=== PATIENT | female | born 1950 | race Caucasian/White ===

== ENCOUNTER 2022-05-24 11:45 | Emergency (ER) | payer MEDICARE, OTHER ==
[~2022-05-24] VITALS: Ht 162.6 cm; Wt 72.6 kg
[~2022-05-24 11:45] MED LIST: Aspirin EC81 MG PO; LISHYD2025 PO; LOSA50 PO; Percocet 5-3251 EACH PO; Prednisone20 MG PO; TRAM50 PO; Zofran4 MG PO
[2022-05-24 12:26] LABS: BASOPHILS ABSOLUTE AUTO 0.06 K/mm3 (0.00-0.23); BASOPHILS PERCENT AUTO 1 % (0-2); EOSINOPHILS PERCENT AUTO 2 % (0-6); Hematocrit 47.7 % (33.0-51.0); Hemoglobin 14.9 g/dL (11.5-16.0); IMMATURE GRAN ABSOLUTE AUTO 0.03 K/mm3 (0.00-0.10); IMMATURE GRAN PERCENT AUTO 0 % (0-1); LYMPHOCYTES ABSOLUTE AUTO 3.02 K/mm3 (0.84-5.20); LYMPHOCYTES PERCENT AUTO 31 % (21-46); MONOCYTES ABSOLUTE AUTO 0.68 K/mm3 (0.16-1.47); MONOCYTES PERCENT AUTO 7 % (4-13); Mean Corpuscular HGB 25.7 pg (26.0-34.0); Mean Corpuscular HGB Conc 31.2 g/dL (31.5-36.5); Mean Corpuscular Volume 82 fL (80-100); Mean Platelet Volume 8.8 fL (9.1-12.4); NEUTROPHILS ABSOLUTE AUTO 5.72 K/mm3 (1.96-9.15); NEUTROPHILS PERCENT AUTO 59 % (41-73); Platelet Count 655 K/mm3 (150-400); RDW Coefficient Variation 15.9 % (11.7-14.2); RDW Standard Deviation 47.4 fL (35.1-46.3); White Blood Cell Count 9.71 K/mm3 (4.00-11.30)
[2022-05-24 12:54] LABS: Albumin/Globulin Ratio 1.1 (0.8-1.8); Bilirubin, Total 0.4 mg/dL (0.1-1.0); Bun/Creatinine Ratio 17.9 (12.0-20.0); Calcium, Blood 9.5 mg/dL (8.5-10.1); Creatinine, Blood 1.51 mg/dL (0.40-1.00); Globulin, Blood 3.8 g/dL (2.2-4.0); Potassium, Blood 3.4 mmol/L (3.5-5.5); Total Protein, Blood 7.8 g/dL (6.4-8.2)
[2022-05-24 15:23] LABS: Influenza A, PCR NEGATIVE (NEGATIVE); Influenza B, PCR NEGATIVE (NEGATIVE); Resp Syncytial Virus, PCR NEGATIVE (NEGATIVE); SARS-Cov-2 (COVID-19) PCR, MMC NEGATIVE (NEGATIVE)
[2022-05-24] MEDS ORDERED: MICROZIDE12.5 M1 PO (16:10)
[2022-05-24] MEDS ORDERED: METO50ER PO (16:10)
[2022-05-24] MEDS ORDERED: POTCHL20ER PO (16:11)
== END 2022-05-24 16:20 | disposition home or self-care (01) ==
LOC: ER 11:45
PROVIDERS: Emergency Medicine; Student in an Organized Health Care Education/Training Program
DX: I12.9 Hypertensive chronic kidney disease with stage 1 through stage 4 chronic kidney disease, or unspecified chronic kidney disease (principal); N18.9 Chronic kidney disease, unspecified; R07.89 Other chest pain; E87.6 Hypokalemia; R41.0 Disorientation, unspecified; R79.89 Other specified abnormal findings of blood chemistry; Z20.822 Contact with and (suspected) exposure to COVID-19; Z88.5 Allergy status to narcotic agent; Z79.899 Other long term (current) drug therapy
CPT/HCPCS: 0241U; 71045; 80053; 84484; 85025; 93005; 93010; A9270

== ENCOUNTER 2022-10-19 11:03 | Inpatient (IN) | payer MEDICARE ==
[~2022-10-19] VITALS: Ht 162.6 cm; Wt 69.2 kg
[~2022-10-19 11:03] MED LIST changes: +METO50ER PO; +MICROZIDE12.5 M1 PO; +POTCHL20ER PO
[2022-10-19 11:47] LABS: Hematocrit 47.6 % (33.0-51.0); Hemoglobin 15.6 g/dL (11.5-16.0); Mean Corpuscular HGB 28.1 pg (26.0-34.0); Mean Corpuscular HGB Conc 32.8 g/dL (31.5-36.5); Mean Corpuscular Volume 86 fL (80-100); Platelet Count 692 K/mm3 (150-400); RDW Standard Deviation 47.1 fL (35.1-46.3); Red Blood Cell Count 5.56 M/mm3 (3.80-5.20); White Blood Cell Count 19.25 K/mm3 (4.00-11.30)
[2022-10-19 12:13] LABS: Albumin, Blood 3.5 g/dL (3.4-5.0); Albumin/Globulin Ratio 0.8 (0.8-1.8); Bilirubin, Total 0.5 mg/dL (0.1-1.0); Bun/Creatinine Ratio 16.1 (12.0-20.0); Calcium, Blood 9.6 mg/dL (8.5-10.1); Creatinine, Blood 2.74 mg/dL (0.40-1.00); Globulin, Blood 4.2 g/dL (2.2-4.0); Potassium, Blood 3.8 mmol/L (3.5-5.5); Total Protein, Blood 7.7 g/dL (6.4-8.2)
[2022-10-19] MEDS ORDERED: LISI20 PO (12:20)
[2022-10-19] MEDS ORDERED: AMLODIPINE BESYL5 MG PO (12:20)
[2022-10-19 12:21] LABS: BAND PERCENT MAN 1 % (0-8); BASOPHILS PERCENT MAN 0 % (0-2); EOSINOPHILS PERCENT MAN 0 % (0-6); LYMPHOCYTES ABSOLUTE MAN 1.54 K/mm3 (0.84-5.20); LYMPHOCYTES PERCENT MAN 8 % (21-46); MONOCYTES ABSOLUTE MAN 0.77 K/mm3 (0.16-1.47); MONOCYTES PERCENT MAN 4 % (4-13); NEUTROPHILS ABSOLUTE MAN 16.94 K/mm3 (1.96-9.15); SEG NEUTROPHILS PERCENT MAN 87 % (41-73); TOTAL CELLS COUNTED 100
[2022-10-19 12:36] LABS: BASOPHILS ABSOLUTE AUTO 0.09 K/mm3 (0.00-0.23); BASOPHILS PERCENT AUTO 1 % (0-2); EOSINOPHILS ABSOLUTE AUTO 0.01 K/mm3 (0.00-0.68); EOSINOPHILS PERCENT AUTO 0 % (0-6); IMMATURE GRAN ABSOLUTE AUTO 0.15 K/mm3 (0.00-0.10); IMMATURE GRAN PERCENT AUTO 1 % (0-1); LYMPHOCYTES ABSOLUTE AUTO 1.83 K/mm3 (0.84-5.20); LYMPHOCYTES PERCENT AUTO 9 % (21-46); MONOCYTES ABSOLUTE AUTO 1.72 K/mm3 (0.16-1.47); MONOCYTES PERCENT AUTO 9 % (4-13); NEUTROPHILS ABSOLUTE AUTO 15.91 K/mm3 (1.96-9.15); NEUTROPHILS PERCENT AUTO 81 % (41-73)
[2022-10-19 16:46] LABS: Source, Urine Clean Catch
[2022-10-19 16:57] LABS: Bilirubin, Urine Neg (Neg); Blood, Urine 1+ (Neg); Glucose Qualitative, Urine Neg (Neg); Ketones, Urine 2+ (Neg); Leukocyte Esterase, Urine Neg (Neg); Nitrite, Urine Neg (Neg); Protein, Urine 2+ (Neg); Specific Gravity, Urine 1.015 (1.003-1.022); Urobilinogen, Urine NORM (Normal)
[2022-10-19 17:16] LABS: Appearance, Urine Hazy (Clear); Color, Urine Yellow (P-Yellow)
[2022-10-19 17:17] LABS: Amorphous Light (0-Heavy); Bacteria Few /hpf; Red Blood Cells, Urine 0-2 /hpf (0-2); Squamous Epithelial Cells Few /hpf (Few); White Blood Cells, Urine 0-2 /hpf (0-5)
[2022-10-19 17:21] LABS: Hyaline Casts 0-2 /lpf (0-2)
[2022-10-19 22:01] LABS: Anti-Xa UFH, PHA Monitoring <0.10 IU/mL; Prothrombin Time Results 11.5 Sec (9.7-11.5)
[2022-10-20 05:13] LABS: BASOPHILS ABSOLUTE AUTO 0.05 K/mm3 (0.00-0.23); BASOPHILS PERCENT AUTO 0 % (0-2); EOSINOPHILS ABSOLUTE AUTO 0.09 K/mm3 (0.00-0.68); EOSINOPHILS PERCENT AUTO 1 % (0-6); Hematocrit 41.4 % (33.0-51.0); Hemoglobin 13.3 g/dL (11.5-16.0); IMMATURE GRAN ABSOLUTE AUTO 0.13 K/mm3 (0.00-0.10); IMMATURE GRAN PERCENT AUTO 1 % (0-1); LYMPHOCYTES ABSOLUTE AUTO 1.42 K/mm3 (0.84-5.20); LYMPHOCYTES PERCENT AUTO 8 % (21-46); MONOCYTES ABSOLUTE AUTO 1.35 K/mm3 (0.16-1.47); MONOCYTES PERCENT AUTO 8 % (4-13); Mean Corpuscular HGB 27.8 pg (26.0-34.0); Mean Corpuscular HGB Conc 32.1 g/dL (31.5-36.5); Mean Corpuscular Volume 86 fL (80-100); Mean Platelet Volume 9.1 fL (9.1-12.4); NEUTROPHILS ABSOLUTE AUTO 14.01 K/mm3 (1.96-9.15); NEUTROPHILS PERCENT AUTO 82 % (41-73); Platelet Count 615 K/mm3 (150-400); RDW Coefficient Variation 15.2 % (11.7-14.2); RDW Standard Deviation 47.8 fL (35.1-46.3); Red Blood Cell Count 4.79 M/mm3 (3.80-5.20); White Blood Cell Count 17.05 K/mm3 (4.00-11.30)
--- NOTE | 2022-10-20 05:51 | NUR ---
SHIFT SUMMARY PT ARRIVED TO FLOOR AROUND 2100. ASSESSMENT COMPLETE, ADMISSION COMPLETE. SKIN CHECK DONE, SKIN INTACT. ON ARRIVAL, PT DENIES ANY ABDOMINAL PAIN. AROUND 0130 PT REPORTS 8/10 ABDOMINAL PAIN, ADMINSITERED PRN MORPHINE THAT WAS EFFECTIVE. DENIES ANY NAUSEA. PT REMAINS ON 2LO2 D/T PAIN MEDICATION ADMIN AND DESATING. UP TO BSC X1 SBA. PT RUNNING NSR ON TELE. HEPARIN GTT INITIATED. PT DENIES ANY OTHER S/S OF DISTRESS BESIDES PAIN. PT FROM HOME WITH , LIVING INDEPENDENT OF ADLS. PT ORINETED X4, ABLE TO MAKE NEEDS KNOWN, CALL LIGHT IN REACH.
[2022-10-20 06:18] LABS: Albumin, Blood 2.7 g/dL (3.4-5.0); Albumin/Globulin Ratio 0.8 (0.8-1.8); Bilirubin, Total 0.4 mg/dL (0.1-1.0); Bun/Creatinine Ratio 16.5 (12.0-20.0); Calcium, Blood 8.6 mg/dL (8.5-10.1); Creatinine, Blood 2.66 mg/dL (0.40-1.00); Globulin, Blood 3.5 g/dL (2.2-4.0); Total Protein, Blood 6.2 g/dL (6.4-8.2)
--- NOTE | 2022-10-20 16:22 | NUR ---
1620- CALL TO DR GREER, NOTIFIED OF ELEVATED BP. RN WILL ADMINISTER HYDRALAZINE AND WILL NOT START IVF PER MD INSTRUCTIONS. WILL F/U WITH BP. AT BEDSIDE AND REQUESTING TO SPEAK WITH DR GREER. SHE IS PLANNING TO COME AND SPEAK WITH FAMILY. RN ALSO REPORTED HEARING CRACKLES IN THE PT'S BASES. PT HAS HAD POOR PO INTAKE AND ONLY 200ML OUT THIS SHIFT. CONCENTRATED URINE
--- NOTE | 2022-10-20 17:42 | NUR ---
SUMMARY- PT A/O X4. WITHDRAWN AND FEELS OVERALL TIRED AND LOW ENERGY. STATES L FLANK PAIN INTERMITTANT, HEAVY PRESSURE. MEDICATED WITH MORPHINE THIS AM AND PT BECAME VERY SEDATED BUT AROUSED EASILY. CHANGED TO FENT. PT DENIED PAIN MOST OF THE AFTERNOON UNTIL AROUND 1645 MEDICATED WITH FENT, PT STATES PAIN INTERMITTANT BUT MANAGABLE. MEDICATED ONCE FOR NAUSEA, HAD EMESIS, BELEIVES IT'S BECAUSE SHE GOT TOO HOT IN HER ROOM. GIVEN ZOFRAN. PT HAS REFUESE SOLID FOOD. DRANK MILK FOR BREAKFAST REFUSED LUNCH AND DINNER. TAKING IN SMALL AMOUNTS OF WATER WITH QUING. PT USES CALL LIGHT. SBA BSC, URINE MED CONCENTRATED. DR GREER SPOKE WITH AND AND RELAYED PLAN. WILL F/U WITH LABS IN AM AND DR GREER PLANS TO SPEAK WITH DR PADGETT ABOUT POSSIBLE INTERVENTIONS IF NEEDED. ALSO POSSIBILITY OF BRINGING IN [facility] FOR CONSULT.
[2022-10-21 03:45] LABS: BASOPHILS ABSOLUTE AUTO 0.05 K/mm3 (0.00-0.23); BASOPHILS PERCENT AUTO 0 % (0-2); EOSINOPHILS ABSOLUTE AUTO 0.18 K/mm3 (0.00-0.68); EOSINOPHILS PERCENT AUTO 1 % (0-6); Hemoglobin 13.1 g/dL (11.5-16.0); IMMATURE GRAN ABSOLUTE AUTO 0.07 K/mm3 (0.00-0.10); IMMATURE GRAN PERCENT AUTO 1 % (0-1); LYMPHOCYTES ABSOLUTE AUTO 1.47 K/mm3 (0.84-5.20); LYMPHOCYTES PERCENT AUTO 10 % (21-46); MONOCYTES ABSOLUTE AUTO 1.34 K/mm3 (0.16-1.47); MONOCYTES PERCENT AUTO 9 % (4-13); Mean Corpuscular HGB 27.9 pg (26.0-34.0); Mean Corpuscular Volume 87 fL (80-100); Mean Platelet Volume 9.1 fL (9.1-12.4); NEUTROPHILS ABSOLUTE AUTO 12.25 K/mm3 (1.96-9.15); NEUTROPHILS PERCENT AUTO 80 % (41-73); Platelet Count 636 K/mm3 (150-400); RDW Coefficient Variation 15.2 % (11.7-14.2); RDW Standard Deviation 48.7 fL (35.1-46.3); White Blood Cell Count 15.36 K/mm3 (4.00-11.30)
[2022-10-21 04:03] LABS: Albumin, Blood 2.6 g/dL (3.4-5.0); Anion Gap 10 mmol/L (6-16); Blood Urea Nitrogen 49 mg/dL (8-24); Bun/Creatinine Ratio 16.8 (12.0-20.0); CO2, Blood 21 mmol/L (21-32); Calcium, Blood 8.7 mg/dL (8.5-10.1); Chloride, Blood 104 mmol/L (98-108); Creatinine, Blood 2.91 mg/dL (0.40-1.00); Glomerular Filtration Rate 17 (60-); Glucose, Blood 80 mg/dL (70-99); Phosphorus, Blood 4.1 mg/dL (2.5-4.9); Potassium, Blood 3.9 mmol/L (3.5-5.5); Sodium, Blood 135 mmol/L (136-145)
--- NOTE | 2022-10-21 04:56 | NUR ---
SHIFT SUMMARY SBP IN THE 130'S AT BEGINNING OF SHIFT, DISCUSSED WITH GSA COORDINATOR AND DAY SHIFT RN TO START THE NS@75ML/HR AND ADMINISTERED SCHEDULED 2100 METROPOLOL. 0330 VITALS SBP 159, PER GSA COORDINATOR KEEP FLUIDS GOING. PT HAD EPISODE OF CONFUSION, OOB NOT KNOWING WHERE SHE WAS, COMPLAINING OF BACK PAIN. ADMINISTERED PRN FENTANYL AND REORIENTED PT. PT FORGETFUL REST OF SHIFT, BUT REDIRECTABLE. BED ALARM ON. HEPARIN GTT CONTINUES. UP TO BSC WITH X1 PERSON ASSIST. NSR ON TELE. REMAINS ON ROOM AIR, LUNGS A LITTLE COARSE. CALL LIGHT IN REACH, FREQUENT ROUNDING TO ASSIST WITH PT NEEDS.
--- NOTE | 2022-10-21 16:16 | NUR ---
Spiritual care visit conducted. Patient is lying in bed and alert. She tells me about her relatively healthy life and the surprise of this hospitalization and the suprise of the pain that has been a result of her condition. She states that she will possibly be having surgery soon but she is uncertain of what exactly will be done. She does discuss her fear about having surgery. She shares about her Kady and his worry for her and about the support that he is to her. She explains about her Episcopal yon and Kady's L.D.S. belief system. I provide therapeutic listening, anxiety containment and prayer. Patient responds well and shows signs of reduced stress. I will continue to remain available to patient and family.
--- NOTE | 2022-10-21 17:39 | NUR ---
PT TRANSFERRED TO [facility] VIA BED FOR KIDNEY ANGIO SCHEDULED WITH DR PADGETT. PT HAS BEEN NPO SINCE 1130. HEPARIN GTT OFF AT 1730. NS OFF AT 1730. PT HAD PAIN THIS AM AND MEDICATED ONCE, PAIN CONTROLLED EXCEPT MILD INTERMITTANT L FLANK ABD PAIN AND DECLINED PAIN MEDS. AT BEDSIDE ALL DAY WITH PATIENT AND FOLLOWED PT TO ANGIO. PT WILL RECOVER IN PCU. ALL BELONGINGS SENT WITH PT.
--- NOTE | 2022-10-21 18:33 | NUR ---
CALLED REPORT TO DEAN Quinteros PT WILL BE GOING TO PCU 6 TO RECOVER POST RENAL ANGIO.
[2022-10-22 02:48] LABS: Magnesium, Blood 2.1 mg/dL (1.6-2.4)
[2022-10-22 02:50] LABS: BASOPHILS ABSOLUTE AUTO 0.06 K/mm3 (0.00-0.23); BASOPHILS PERCENT AUTO 0 % (0-2); EOSINOPHILS ABSOLUTE AUTO 0.22 K/mm3 (0.00-0.68); EOSINOPHILS PERCENT AUTO 2 % (0-6); Hematocrit 41.7 % (33.0-51.0); Hemoglobin 13.4 g/dL (11.5-16.0); IMMATURE GRAN ABSOLUTE AUTO 0.13 K/mm3 (0.00-0.10); IMMATURE GRAN PERCENT AUTO 1 % (0-1); LYMPHOCYTES ABSOLUTE AUTO 1.24 K/mm3 (0.84-5.20); LYMPHOCYTES PERCENT AUTO 9 % (21-46); MONOCYTES PERCENT AUTO 10 % (4-13); Mean Corpuscular HGB 27.5 pg (26.0-34.0); Mean Corpuscular HGB Conc 32.1 g/dL (31.5-36.5); Mean Corpuscular Volume 86 fL (80-100); Mean Platelet Volume 9.5 fL (9.1-12.4); NEUTROPHILS ABSOLUTE AUTO 11.35 K/mm3 (1.96-9.15); NEUTROPHILS PERCENT AUTO 78 % (41-73); Platelet Count 724 K/mm3 (150-400); RDW Coefficient Variation 15.2 % (11.7-14.2); RDW Standard Deviation 47.2 fL (35.1-46.3); Red Blood Cell Count 4.88 M/mm3 (3.80-5.20)
[2022-10-22 03:06] LABS: Albumin, Blood 2.4 g/dL (3.4-5.0); Albumin/Globulin Ratio 0.6 (0.8-1.8); Bilirubin, Direct 0.1 mg/dL (0.0-0.3); Bilirubin, Indirect 0.2 mg/dL (0.1-0.7); Bilirubin, Total 0.3 mg/dL (0.1-1.0); Bun/Creatinine Ratio 17.3 (12.0-20.0); Calcium, Blood 8.7 mg/dL (8.5-10.1); Creatinine, Blood 2.83 mg/dL (0.40-1.00); Globulin, Blood 3.8 g/dL (2.2-4.0); Phosphorus, Blood 3.6 mg/dL (2.5-4.9); Potassium, Blood 3.8 mmol/L (3.5-5.5); Total Protein, Blood 6.2 g/dL (6.4-8.2)
--- NOTE | 2022-10-22 05:39 | NUR ---
SHIFT SUMMARY PT ARRIVED TO THE UNIT POST RENAL ANGIO, SHE HAS A RIGHT GROIN ACCESS SITE, DRSG REMAINS C/D/I, NO S/S OF BLEEDING, PT MEDICATED FOR PAIN X1, A&O X4, DROWSY, HYPERTENSIVE, ON RA, RESP UNLABORED, SPO2 >95%. PT VOIDED 300 ML'S CLEAR YELLOW URINE VIA BEDPAN. TOLERATING PO FLUIDS, HEP GTT INFUSING PER EMAR @ 14 UNITS/KG/HR. PT RESTING QUIETLY AT THIS TIME, WCTM & REPORT TO ONCOMING RN
--- NOTE | 2022-10-22 13:13 | NUR ---
TRANSFER NOTE VSS, PT WAS ABLE TO ABMULATE TO WHEELCHAIR A 1 PERSON SBA, SHE DID APPEAR UNSTEADY ON HER FEET. SHE DENIED FEELINGS OF DIZZINESS. HEPARIN DRIP IS INFUSING PER EMAR ORDERS. REPORT GIVEN TO ÓSCAR NEGRO ON MEDICAL FLOOR. PT LEFT PCU APPROX. 1305 VIA WHEELCHAIR AND WAS ASSISTED BY JUAN OSBORN CNA AND THERON CERRATO CNA. HER WAS ALSO AT BEDSIDE.
--- NOTE | 2022-10-22 16:37 | NUR ---
MET WITH RN, PT TO BE DC TOMORROW TO HOME. PT RESTNG AT THIS TIME, NO CONCERNS. PALLIATIVE CARE WILL CONT TO BE AVAILABLE NEEDED.
--- NOTE | 2022-10-22 19:06 | NUR ---
PT RESTING IN BED NO S/S OF ACUTE DISTRESS, SAFETY MEASURES IN PLACE REPORT GIVEN TO ON COMING NURSE.
[2022-10-23 04:53] LABS: BASOPHILS ABSOLUTE AUTO 0.07 K/mm3 (0.00-0.23); BASOPHILS PERCENT AUTO 1 % (0-2); EOSINOPHILS ABSOLUTE AUTO 0.31 K/mm3 (0.00-0.68); EOSINOPHILS PERCENT AUTO 2 % (0-6); Hematocrit 38.9 % (33.0-51.0); Hemoglobin 12.8 g/dL (11.5-16.0); IMMATURE GRAN ABSOLUTE AUTO 0.14 K/mm3 (0.00-0.10); IMMATURE GRAN PERCENT AUTO 1 % (0-1); LYMPHOCYTES PERCENT AUTO 12 % (21-46); MONOCYTES ABSOLUTE AUTO 1.34 K/mm3 (0.16-1.47); MONOCYTES PERCENT AUTO 10 % (4-13); Mean Corpuscular HGB 27.9 pg (26.0-34.0); Mean Corpuscular HGB Conc 32.9 g/dL (31.5-36.5); Mean Corpuscular Volume 85 fL (80-100); Mean Platelet Volume 9.1 fL (9.1-12.4); NEUTROPHILS ABSOLUTE AUTO 9.41 K/mm3 (1.96-9.15); NEUTROPHILS PERCENT AUTO 73 % (41-73); Platelet Count 753 K/mm3 (150-400); RDW Coefficient Variation 15.2 % (11.7-14.2); RDW Standard Deviation 46.8 fL (35.1-46.3); Red Blood Cell Count 4.59 M/mm3 (3.80-5.20); White Blood Cell Count 12.87 K/mm3 (4.00-11.30)
[2022-10-23 05:19] LABS: Albumin, Blood 2.5 g/dL (3.4-5.0); Anion Gap 10 mmol/L (6-16); Blood Urea Nitrogen 47 mg/dL (8-24); Bun/Creatinine Ratio 17.3 (12.0-20.0); CO2, Blood 19 mmol/L (21-32); Calcium, Blood 9.3 mg/dL (8.5-10.1); Chloride, Blood 108 mmol/L (98-108); Creatinine, Blood 2.72 mg/dL (0.40-1.00); Glomerular Filtration Rate 18 (60-); Glucose, Blood 99 mg/dL (70-99); Magnesium, Blood 2.1 mg/dL (1.6-2.4); Phosphorus, Blood 2.8 mg/dL (2.5-4.9); Potassium, Blood 3.8 mmol/L (3.5-5.5); Sodium, Blood 137 mmol/L (136-145)
--- NOTE | 2022-10-23 05:20 | NUR ---
COPYRIGHT EXPERT SUMMARY NO ACUTE EVENTS. PT ABLE TO RESPOND APPROPRIATELY TO ALL ORIENATION QUESTIONS. HER RESPONSE IS SLOW AND HER AFFECT IS FLAT/ANXIOUS. THE PUNCTURE SITE IN GROIN WNL; NO BLEEDING/ SWELLING, BRUISING; DRESSING CDI. PT AMBULATED T/BSC 1PA W/FWW. URINE CLEAR YELLOW. 0336 VITALS/SPB 176; GAVE 10MG APRESOLINE; SPB DROPPED TO 158. PT ABLE TO MAKE NEEDS KNONW. CALL LIGHT ACCESSIBLE. BED LOCKED/LOW.
[2022-10-23] MEDS ORDERED: CLOP75 PO (10:15)
[2022-10-23] MEDS ORDERED: ATOR40TA PO (10:15)
[2022-10-23] MEDS ORDERED: SODBIC650 PO (10:16)
--- NOTE | 2022-10-23 11:15 | NUR ---
PT ALERT DC HOME WITH SPOUSE. PT AND FAMILY VERBALIZED UNDERSTANDING OF DC INSTRUCTIONS.
== END 2022-10-23 11:11 | disposition home or self-care (01) | DRG 674 ==
LOC: ER 11:03 → MEDS 20:41 → PCU 10-21 18:27 → MEDS 10-22 13:20
PROVIDERS: Family Medicine; Internal Medicine Nephrology; Pharmacist; Physician Assistant; ADMIT Internal Medicine
PROC: 047A3DZ Dilation of Left Renal Artery with Intraluminal Device, Percutaneous Approach (ICD-10-PCS; principal; 2022-10-21)
PROC: 04FY3Z0 Fragmentation of Lower Artery, Percutaneous Approach, Ultrasonic (ICD-10-PCS; 2022-10-21)
PROC: 3E05317 Introduction of Other Thrombolytic into Peripheral Artery, Percutaneous Approach (ICD-10-PCS; 2022-10-21)
DX: N28.0 Ischemia and infarction of kidney (principal); E87.1 Hypo-osmolality and hyponatremia; N17.9 Acute kidney failure, unspecified; N12 Tubulo-interstitial nephritis, not specified as acute or chronic; E87.20 Acidosis, unspecified; I12.9 Hypertensive chronic kidney disease with stage 1 through stage 4 chronic kidney disease, or unspecified chronic kidney disease; E88.09 Other disorders of plasma-protein metabolism, not elsewhere classified; D75.838 Other thrombocytosis; E78.5 Hyperlipidemia, unspecified; D72.828 Other elevated white blood cell count; N18.30 Chronic kidney disease, stage 3 unspecified; M54.50 Low back pain, unspecified; Z90.710 Acquired absence of both cervix and uterus; Z88.5 Allergy status to narcotic agent; Z79.899 Other long term (current) drug therapy
CPT/HCPCS: 36252; 36415; 37236; 50430; 51701; 74177; 76937; 80053; 80069; 81001; 82248; 83615; 83690; 83735; 84100; 84443; 85025; 85520; 85610; 85730; 93005; 93010; 93306; 96365-59; 96366-59; 96368; 96375-59; 99152; 99153; 99285-25; A9270; C1760; C1769; C1876; C1887; C1894; J0360; J1170; J1644; J2250; J2270; J2405; J2543; J2997; J3010; J7030; Q9967

== ENCOUNTER → 2022-12-12 | Outpatient (CLI) | payer MEDICARE ==
[~2022-12-12] MED LIST changes: +AMLODIPINE BESYL5 MG PO; +ATOR40TA PO; +CLOP75 PO; +LISI20 PO; +SODBIC650 PO
[2022-12-12 12:06] LABS: Creatinine Urine 37.3 mg/dL (27.00-270.00); Microalbumin, Urine Quant. 59.4 mg/L (0.000-20.000); Protein, Urine Quantitative 19.9 mg/dL (0.0-11.9)
== END | disposition home or self-care (01) ==
LOC: LAB SHORT 09:49 → LAB 09:49
PROVIDERS: Internal Medicine Nephrology
DX: N18.30 Chronic kidney disease, stage 3 unspecified (principal); D63.1 Anemia in chronic kidney disease; N25.81 Secondary hyperparathyroidism of renal origin; E55.9 Vitamin D deficiency, unspecified; E78.00 Pure hypercholesterolemia, unspecified; R76.9 Abnormal immunological finding in serum, unspecified; R94.5 Abnormal results of liver function studies; R94.6 Abnormal results of thyroid function studies
CPT/HCPCS: 81050; 82043; 82570; 84156

== ENCOUNTER 2023-02-08 12:55 | Inpatient (IN) | payer MEDICARE ==
[~2023-02-08] VITALS: Ht 162.6 cm; Wt 67.6 kg
[~2023-02-08 12:55] MED LIST changes: -AMLODIPINE BESYL5 MG PO; +Amlodipine Bes2.5 MG PO
[2023-02-08] MEDS ORDERED: LOSARTAN POTASS25 M2 PO (14:29)
[2023-02-08 15:47] LABS: BASOPHILS ABSOLUTE AUTO 0.08 K/mm3 (0.00-0.23); BASOPHILS PERCENT AUTO 0 % (0-2); EOSINOPHILS ABSOLUTE AUTO 0.15 K/mm3 (0.00-0.68); EOSINOPHILS PERCENT AUTO 1 % (0-6); Hematocrit 43.2 % (33.0-51.0); Hemoglobin 13.9 g/dL (11.5-16.0); IMMATURE GRAN ABSOLUTE AUTO 0.23 K/mm3 (0.00-0.10); IMMATURE GRAN PERCENT AUTO 1 % (0-1); LYMPHOCYTES ABSOLUTE AUTO 2.37 K/mm3 (0.84-5.20); LYMPHOCYTES PERCENT AUTO 10 % (21-46); MONOCYTES PERCENT AUTO 9 % (4-13); Mean Corpuscular HGB Conc 32.2 g/dL (31.5-36.5); Mean Corpuscular Volume 84 fL (80-100); Mean Platelet Volume 8.8 fL (9.1-12.4); NEUTROPHILS ABSOLUTE AUTO 18.47 K/mm3 (1.96-9.15); NEUTROPHILS PERCENT AUTO 79 % (41-73); Platelet Count 619 K/mm3 (150-400); RDW Coefficient Variation 14.1 % (11.7-14.2); RDW Standard Deviation 43.5 fL (35.1-46.3); Red Blood Cell Count 5.14 M/mm3 (3.80-5.20)
[2023-02-08 16:07] LABS: Albumin, Blood 3.4 g/dL (3.4-5.0); Albumin/Globulin Ratio 1.1 (0.8-1.8); Bilirubin, Total 0.4 mg/dL (0.1-1.0); Bun/Creatinine Ratio 26.4 (12.0-20.0); Calcium, Blood 9.4 mg/dL (8.5-10.1); Creatinine, Blood 2.01 mg/dL (0.40-1.00); Globulin, Blood 3.1 g/dL (2.2-4.0); Potassium, Blood 3.9 mmol/L (3.5-5.5); Total Protein, Blood 6.5 g/dL (6.4-8.2)
[2023-02-08 17:05] LABS: Source, Urine Clean Catch
[2023-02-08 17:14] LABS: Bilirubin, Urine Neg (Neg); Blood, Urine Neg (Neg); Glucose Qualitative, Urine Neg (Neg); Ketones, Urine Neg (Neg); Leukocyte Esterase, Urine Neg (Neg); Nitrite, Urine Neg (Neg); Protein, Urine 2+ (Neg); Specific Gravity, Urine 1.015 (1.003-1.022); Urobilinogen, Urine NORM (Normal)
[2023-02-08 17:20] LABS: Appearance, Urine Hazy (Clear); Color, Urine Yellow (P-Yellow)
[2023-02-08 17:25] LABS: Amorphous Light (0-Heavy); Bacteria Few /hpf; Hyaline Casts 0-2 /lpf (0-2); Red Blood Cells, Urine 0-2 /hpf (0-2); Squamous Epithelial Cells Few /hpf (Few); White Blood Cells, Urine 0-2 /hpf (0-5)
[2023-02-08 17:37] LABS: U Amphetamine Screen Not Detected; U Barbituate Screen Not Detected; U Benzodiazapine Screen Not Detected; U Buprenorphine Screen Not Detected; U Cannabinoids Screen Not Detected; U Cocaine Screen Not Detected; U Methadone Screen Not Detected; U Methamphetamine Screen Not Detected; U Opiates Screen Not Detected; U Oxycodone Screen Not Detected; U Phencyclidine Screen Not Detected; U Propoxyphene Screen Not Detected
[2023-02-08] MEDS ORDERED: LOSA25 PO (20:22)
[2023-02-08] MEDS ORDERED: METO50ER PO (20:24)
[2023-02-08 21:42] VITALS: BP 190/79
--- NOTE | 2023-02-08 23:48 | NUR ---
2142 PT ARRIVED TO ROOM FROM ER VIA GURNEY IN STABLE CONDITION. PT DENIES ANY DISCOMFORT. PT APPARENT BRUISES OR SKIN TEARS AT THIS TIME. PT DENIES NEED FOR ANYTHING ELSE AT THIS TIME. NO APPARENT SIGNS OF DISTRESS. CALL LIGHT IS IN REACH.
[2023-02-09] VITALS (7 sets, daily range): BP systolic 115–211; BP diastolic 59–92
--- NOTE | 2023-02-09 00:12 | NUR ---
PT LYING IN BED, EYES CLOSED, APPEARS TO BE RESTING. BREATHING IS EVEN, UNLABORED. NO APPARENT SIGNS OF DISTRSS. CALL LIGHT IS IN REACH. BED ALARM IS ON.
--- NOTE | 2023-02-09 03:51 | NUR ---
0200 PT LYING IN BED, EYES CLOSED, APPEARS TO BE RESTING. BREATHING IS EVEN, UNLABORED. NO APPARENT SIGNS OF DISTRESS. CALL LIGHT IS IN REACH.
--- NOTE | 2023-02-09 03:52 | NUR ---
PT LYING IN BED, WAKES EASILY TO VERBAL STIMULI. NO APPARENT SIGNS OF DISTRESS. DENIES NEED FOR ANYTHING. CALL LIGHT IS IN REACH.
[2023-02-09 05:16] LABS: Hematocrit 40.7 % (33.0-51.0); Hemoglobin 12.9 g/dL (11.5-16.0); Mean Corpuscular HGB 27.1 pg (26.0-34.0); Mean Corpuscular HGB Conc 31.7 g/dL (31.5-36.5); Mean Corpuscular Volume 86 fL (80-100); Mean Platelet Volume 8.9 fL (9.1-12.4); Platelet Count 593 K/mm3 (150-400); RDW Coefficient Variation 14.3 % (11.7-14.2); RDW Standard Deviation 44.5 fL (35.1-46.3); Red Blood Cell Count 4.76 M/mm3 (3.80-5.20); White Blood Cell Count 13.21 K/mm3 (4.00-11.30)
[2023-02-09 05:30] LABS: Anion Gap 3 mmol/L (6-16); Blood Urea Nitrogen 42 mg/dL (8-24); Bun/Creatinine Ratio 22.5 (12.0-20.0); CHOL/HDL RATIO 2.4; CO2, Blood 27 mmol/L (21-32); Calcium, Blood 8.5 mg/dL (8.5-10.1); Chloride, Blood 112 mmol/L (98-108); Cholesterol 149 mg/dL (50-200); Creatinine, Blood 1.87 mg/dL (0.40-1.00); Glomerular Filtration Rate 28 (60-); Glucose, Blood 95 mg/dL (70-99); HDL Cholesterol 63 mg/dL (>39); LDL/HDL RATIO 0.9; Low Density Lipoprotein Chol 57 mg/dL (0-110); Potassium, Blood 3.5 mmol/L (3.5-5.5); Sodium, Blood 142 mmol/L (136-145); Triglycerides 146 mg/dL (30-160); Very Low Density Lipoprot Chol 29 mg/dL (6-32)
--- NOTE | 2023-02-09 06:24 | NUR ---
PT'S BP THIS MORNING WAS 211/86, RECHECKED IT WAS 210/87. PT DENIES PAIN. CALLED DR PHIPPS, GOT ORDERS FOR COZAAR AND APRESOLINE AND GAVE. WILL EVAL FOR EFFECT. PT DENIED NEED FOR ANYTHING ELSE AT THIS TIME. NO OTHER APPARENT SIGNS OF DISTRESS. CALL LIGHT IS IN REACH. NO OTHER CHANGES THIS SHIFT.
--- NOTE | 2023-02-09 06:26 | NUR ---
PT IS AAO X 4, PT DENIED PAIN FOR THIS SHIFT. TELE NSR. PT'S BP WAS HIGH THIS AM, CALLED MIKE HARO AND ERMA.
--- NOTE | 2023-02-09 14:02 | NUR ---
Spiritual care visit conducted. Patient is lying in bed and alert. Patient's spouse, Kady, is bedside. He is suspicious of the Manager [employer] role initially, but once it is discovered that the Manager [employer] is does not push or promote a particular bahai but just a support person during challenging times to help navigate the complexities of medical situations, both patient and Kady are welcoming. They share their story of recent events that led to the hospitalization, Kady's career and his role as caregiver in the patient's life. I hear their struggle and the gravity of their current reality. I listen empathically, normalize their experience and reinforce helpful attitudes and practices. Patient and Kady responded well and showed signs of reduced stress. I will continue to remain available to patient and family.
--- NOTE | 2023-02-09 19:36 | NUR ---
SUMMARY- PT A/O X2. L SIDE DEFICITS. PT HAS FLAT AFFECT AND SLOW TO RESPOND. DOES NOT KNOW WHERE SHE IS OR THE DATE. PT/OT WORKED WITH PT TODAY WITH DIFFICULTY RELATED TO COGNITIVE IMPAIRMENTS AND INABILITY FO FOLLOW COMMANDS OR USE L SIDE. GOT UP TO THE CHAIR WITH OT AFTER LUNCH AND STAYED UP THROUGH DINNER. HERE TO VISIT FOR A FEW HOURS TODAY. CALLED DR OLIVIA BROWNING 1700 TO NOTIFY OF HIGH BP. ORDER FOR PRN HYDRALAZINE ADMINISTERED, WILL FOLLOW UP WITH BP. NOT WANTING TO DROP BP TOO LOW WITH CAROTID OCCLUSION. REPORTED TO NOC RN.
[2023-02-10 02:17] VITALS: BP 189/98
[2023-02-10 03:03] VITALS: BP 174/93
[2023-02-10 05:48] LABS: BASOPHILS ABSOLUTE AUTO 0.07 K/mm3 (0.00-0.23); BASOPHILS PERCENT AUTO 1 % (0-2); EOSINOPHILS PERCENT AUTO 2 % (0-6); Hematocrit 39.5 % (33.0-51.0); Hemoglobin 12.4 g/dL (11.5-16.0); IMMATURE GRAN ABSOLUTE AUTO 0.11 K/mm3 (0.00-0.10); IMMATURE GRAN PERCENT AUTO 1 % (0-1); LYMPHOCYTES ABSOLUTE AUTO 1.83 K/mm3 (0.84-5.20); LYMPHOCYTES PERCENT AUTO 15 % (21-46); MONOCYTES ABSOLUTE AUTO 1.31 K/mm3 (0.16-1.47); MONOCYTES PERCENT AUTO 11 % (4-13); Mean Corpuscular HGB 27.1 pg (26.0-34.0); Mean Corpuscular HGB Conc 31.4 g/dL (31.5-36.5); Mean Corpuscular Volume 86 fL (80-100); NEUTROPHILS ABSOLUTE AUTO 8.75 K/mm3 (1.96-9.15); NEUTROPHILS PERCENT AUTO 71 % (41-73); Platelet Count 549 K/mm3 (150-400); RDW Coefficient Variation 14.4 % (11.7-14.2); RDW Standard Deviation 45.1 fL (35.1-46.3); Red Blood Cell Count 4.57 M/mm3 (3.80-5.20); White Blood Cell Count 12.37 K/mm3 (4.00-11.30)
[2023-02-10 05:57] LABS: Albumin, Blood 2.7 g/dL (3.4-5.0); Anion Gap 3 mmol/L (6-16); Blood Urea Nitrogen 34 mg/dL (8-24); CO2, Blood 25 mmol/L (21-32); Calcium, Blood 8.4 mg/dL (8.5-10.1); Chloride, Blood 113 mmol/L (98-108); Creatinine, Blood 1.79 mg/dL (0.40-1.00); Glomerular Filtration Rate 30 (60-); Glucose, Blood 104 mg/dL (70-99); Potassium, Blood 3.4 mmol/L (3.5-5.5); Sodium, Blood 141 mmol/L (136-145)
--- NOTE | 2023-02-10 06:46 | NUR ---
SHIFT SUMMARY PT SITTING UP IN CHAIR DURING BEDSIDE REPORT, PT DENIES PAIN- 2 PERSON ASSIST WITH GAIT BELT TO BED- PT C/O PAIN IN PELVIS WHEN RETURNING TO BED, PT DENIED PAIN ONCE IN BED, PT SET OF BED ALARM ATTEMPTING TO GET OUT OF BED, PT SELF REMOVED IV- NEW IV PLACED, PT TOELRATED WELL- IV INFUSING WITHOUT PROBLEMS - HYDRALAZINE GIVEN FOR HYPERTENSION AND TYLENOL FOR FEBRILE-
[2023-02-10 07:47] VITALS: BP 203/111
[2023-02-10] MEDS ORDERED: ACET325 PO (11:51)
[2023-02-10] MEDS ORDERED: ASPI81CH PO (11:51)
[2023-02-10] MEDS ORDERED: SODBIC650 PO (11:52)
[2023-02-10 13:06] LABS: SARS-Cov-2 (COVID-19) PCR, MMC NEGATIVE (NEGATIVE)
--- NOTE | 2023-02-10 13:33 | NUR ---
Spiritual care visit conducted. Patient is being attended to by the senior staff accountant while patient's spouse, Kady waits in the hallway. I visit with him as he discusses patient going to a rehabilitation center and that it was determined that she did, in fac,t have a stroke. He tells me about the struggle this season has been but that he is ok with her getting a higher level of care for a few weeks because he is physically/emotionally exhausted from the caregiving. He states that he is still taking things as they come and able to manage ok. I will continue t remain available to patient and family.
--- NOTE | 2023-02-10 14:23 | NUR ---
PT DISCHARGED TO [facility], WHEELCHAIR ESCORT TO PRIVATE CARE, TO TRANSPORT TO FACILITY AT 1335- CALLED REPORT TO GABRIELA AT [facility] 1420 (HAD OVERLOOKED, CALLED LATE)
== END 2023-02-10 13:44 | DRG 535 ==
LOC: ER 12:55 → MEDS 20:02 → ENPENDDIS 02-10 12:04 → MEDS 02-10 13:44
PROVIDERS: Emergency Medicine; Nurse Practitioner Acute Care; ADMIT Internal Medicine
DX: S32.592A Other specified fracture of left pubis, initial encounter for closed fracture (principal); I63.9 Cerebral infarction, unspecified; G81.94 Hemiplegia, unspecified affecting left nondominant side; N28.0 Ischemia and infarction of kidney; N18.4 Chronic kidney disease, stage 4 (severe); I12.9 Hypertensive chronic kidney disease with stage 1 through stage 4 chronic kidney disease, or unspecified chronic kidney disease; R29.6 Repeated falls; Z20.822 Contact with and (suspected) exposure to COVID-19; D72.829 Elevated white blood cell count, unspecified; Z90.710 Acquired absence of both cervix and uterus; Z88.5 Allergy status to narcotic agent; Z79.899 Other long term (current) drug therapy; W01.0XXA Fall on same level from slipping, tripping and stumbling without subsequent striking against object, initial encounter
CPT/HCPCS: 36415; 51701; 70450; 70551; 71045; 73502; 80048; 80053; 80061; 80069; 81001; 83605; 85025; 85027; 93005; 93010; 93880; 97112; 97162; 97166; 97530; 99285-25; A9270; J0360; J1644; J7030; J7060; U0004

== ENCOUNTER 2023-05-10 09:41 | Inpatient (IN) | payer MEDICARE, OTHER ==
[~2023-05-10] VITALS: Ht 162.6 cm; Wt 62.4 kg
[~2023-05-10 09:41] MED LIST changes: +ACET325 PO; +ASPI81CH PO; +LOSA25 PO; +LOSARTAN POTASS25 M2 PO
[2023-05-10] MEDS ORDERED: HYDCHL25 PO (09:58)
[2023-05-10 10:35] LABS: Chloride (POC) 104 mmol/L (98-108); Creatinine (POC) 2.4 mg/dL (0.6-1.0); Glucose (ISTAT POC) 111 mg/dL (70-99); Hemoglobin (POC) 10.9 g/dL (12.0-16.0); Potassium (POC) 3.2 mmol/L (3.5-5.5); Sodium (POC) 141 mmol/L (135-148); Total CO2 (POC) 22 mmol/L (21-32)
[2023-05-10 10:36] LABS: Base Excess Venous 1.8 mmol/L; Bicarbonate Venous 25.3 mmol/L (24.0-30.0); PCO2 Venous 43.9 mmHg (38-42); pH Blood Venous 7.39 (7.34-7.37)
[2023-05-10 10:44] LABS: BASOPHILS ABSOLUTE AUTO 0.06 K/mm3 (0.00-0.23); BASOPHILS PERCENT AUTO 0 % (0-2); EOSINOPHILS ABSOLUTE AUTO 0.28 K/mm3 (0.00-0.68); EOSINOPHILS PERCENT AUTO 2 % (0-6); Hematocrit 32.1 % (33.0-51.0); Hemoglobin 10.2 g/dL (11.5-16.0); IMMATURE GRAN ABSOLUTE AUTO 0.06 K/mm3 (0.00-0.10); IMMATURE GRAN PERCENT AUTO 0 % (0-1); LYMPHOCYTES ABSOLUTE AUTO 2.87 K/mm3 (0.84-5.20); LYMPHOCYTES PERCENT AUTO 18 % (21-46); MONOCYTES ABSOLUTE AUTO 1.44 K/mm3 (0.16-1.47); MONOCYTES PERCENT AUTO 9 % (4-13); Mean Corpuscular HGB 26.9 pg (26.0-34.0); Mean Corpuscular HGB Conc 31.8 g/dL (31.5-36.5); Mean Corpuscular Volume 85 fL (80-100); NEUTROPHILS PERCENT AUTO 71 % (41-73); Platelet Count 783 K/mm3 (150-400); RDW Coefficient Variation 15.9 % (11.7-14.2); RDW Standard Deviation 49.6 fL (35.1-46.3); Red Blood Cell Count 3.79 M/mm3 (3.80-5.20); White Blood Cell Count 16.41 K/mm3 (4.00-11.30)
[2023-05-10 10:55] LABS: Acetaminophen, Random <2.0 ug/mL (10.0-30.0); Alanine Aminotransfer (ALT/SGP 11 U/L (12-78); Albumin, Blood 2.9 g/dL (3.4-5.0); Albumin/Globulin Ratio 1.2 (0.8-1.8); Alk Phos 59 U/L (50-136); Anion Gap 7 mmol/L (6-16); Aspartate Aminotrans (AST/SGOT 17 U/L (12-37); Bilirubin, Total 0.4 mg/dL (0.1-1.0); Blood Urea Nitrogen 43 mg/dL (8-24); Bun/Creatinine Ratio 19.5 (12.0-20.0); CO2, Blood 26 mmol/L (21-32); Calcium, Blood 8.6 mg/dL (8.5-10.1); Chloride, Blood 110 mmol/L (98-108); Globulin, Blood 2.4 g/dL (2.2-4.0); Glomerular Filtration Rate 23 (60-); Glucose, Blood 116 mg/dL (70-99); Magnesium, Blood 1.9 mg/dL (1.6-2.4); Phosphorus, Blood 3.7 mg/dL (2.5-4.9); Potassium, Blood 3.5 mmol/L (3.5-5.5); Salicylate <1.7 mg/dL (2.8-20.0); Sodium, Blood 143 mmol/L (136-145); Total Protein, Blood 5.3 g/dL (6.4-8.2)
[2023-05-10 11:01] LABS: D-Dimer, Quantitative 1.25 mg/L FEU (0.00-0.52); International Normalized Ratio 1.02; Prothrombin Time Results 10.7 Sec (9.7-11.5)
[2023-05-10 11:55] LABS: Source, Urine Straight Cath
[2023-05-10 11:58] LABS: Bilirubin, Urine Neg (Neg); Blood, Urine Neg (Neg); Glucose Qualitative, Urine Neg (Neg); Ketones, Urine Neg (Neg); Leukocyte Esterase, Urine 1+ (Neg); Nitrite, Urine Neg (Neg); Protein, Urine 1+ (Neg); Specific Gravity, Urine 1.015 (1.003-1.022); Urobilinogen, Urine NORM (Normal)
[2023-05-10 12:10] LABS: Appearance, Urine Clear (Clear); Color, Urine Yellow (P-Yellow)
[2023-05-10 12:11] LABS: Bacteria Mod /hpf; Red Blood Cells, Urine 0-2 /hpf (0-2); Squamous Epithelial Cells Few /hpf (Few)
[2023-05-10 15:27] LABS: Hematocrit 26.3 % (33.0-51.0); Hemoglobin 8.2 g/dL (11.5-16.0)
[2023-05-10 16:03] VITALS: BP 101/50
--- NOTE | 2023-05-10 17:44 | NUR ---
PT IS ALERT AND ORIENTED X 4 BUT APPEARS CONFUSED AT TIMES FOR INSTANCE, WHEN HER STATED THAT HE WAS GOING HOME SHE STATED "AREN'T YOU GOING TO WAIT FOR ME." SHE ARRIVED TO PCU AT APPROX. 1558 AND WAS SLID INTO PCU BED DUE TO MULTIPLE SYNCOPAL EPISODES TODAY. VSS, SHE IS ON RA AND SPO2 >95%. SHE DENIED FEELINGS OF DIZZINESS/LIGHTHEADEDNESS. SHE DENIED FEELINGS OF CHEST PAIN/PRESSURE WELL NAUSEA. HER ZAHRAA WAS AT BEDSIDE UPON ARRIVAL TO PCU. LARGE BRUISE/HEMATOMA NOTED ON R HIP, PLEASE SEE CHART FOR PHOTOS. LR INFUSING PER EMAR ORDERS. PT IS NOW EATING DINNER IN BED. SHE WAS INSTRUCTED SETUP OPERATOR LIGHT USE, CALL LIGTH IS W/IN REACH, BED IS IN LOW.
[2023-05-10 19:37] VITALS: BP 112/65
[2023-05-10 22:07] LABS: Hematocrit 24.2 % (33.0-51.0); Hemoglobin 7.6 g/dL (11.5-16.0)
[2023-05-10 23:23] VITALS: BP 109/58
[2023-05-10 23:56] LABS: Prothrombin Time Results 10.5 Sec (9.7-11.5)
[2023-05-11] VITALS (12 sets, daily range): BP systolic 117–149; BP diastolic 52–71
[2023-05-11 04:16] LABS: BASOPHILS ABSOLUTE AUTO 0.07 K/mm3 (0.00-0.23); BASOPHILS PERCENT AUTO 1 % (0-2); EOSINOPHILS ABSOLUTE AUTO 0.15 K/mm3 (0.00-0.68); EOSINOPHILS PERCENT AUTO 1 % (0-6); Hematocrit 27.5 % (33.0-51.0); Hemoglobin 8.9 g/dL (11.5-16.0); IMMATURE GRAN ABSOLUTE AUTO 0.05 K/mm3 (0.00-0.10); IMMATURE GRAN PERCENT AUTO 0 % (0-1); LYMPHOCYTES ABSOLUTE AUTO 2.02 K/mm3 (0.84-5.20); LYMPHOCYTES PERCENT AUTO 17 % (21-46); MONOCYTES ABSOLUTE AUTO 1.15 K/mm3 (0.16-1.47); MONOCYTES PERCENT AUTO 9 % (4-13); Mean Corpuscular HGB 27.4 pg (26.0-34.0); Mean Corpuscular HGB Conc 32.4 g/dL (31.5-36.5); Mean Corpuscular Volume 85 fL (80-100); Mean Platelet Volume 9.1 fL (9.1-12.4); NEUTROPHILS ABSOLUTE AUTO 8.81 K/mm3 (1.96-9.15); NEUTROPHILS PERCENT AUTO 72 % (41-73); Platelet Count 629 K/mm3 (150-400); RDW Coefficient Variation 15.6 % (11.7-14.2); RDW Standard Deviation 48.3 fL (35.1-46.3); Red Blood Cell Count 3.25 M/mm3 (3.80-5.20); White Blood Cell Count 12.25 K/mm3 (4.00-11.30)
[2023-05-11 04:42] LABS: Albumin, Blood 2.5 g/dL (3.4-5.0); Bilirubin, Total 0.7 mg/dL (0.1-1.0); Bun/Creatinine Ratio 21.1 (12.0-20.0); Calcium, Blood 8.3 mg/dL (8.5-10.1); Creatinine, Blood 1.99 mg/dL (0.40-1.00); Globulin, Blood 2.4 g/dL (2.2-4.0); Potassium, Blood 3.9 mmol/L (3.5-5.5); Total Protein, Blood 4.9 g/dL (6.4-8.2)
--- NOTE | 2023-05-11 05:05 | NUR ---
SHIFT SUMMARY A/Ox3 AND COOPERATIVE WITH CARE. SLOW TO RESPOND AT TIMES AND HAS A FLAT AFFECT. ABLE TO ANSWER QUESTIONS APPROPRIATELY AND ABLE TO MAKE HER NEEDS KNOWN. CARDIAC, REMAINS IN SR 70-90'S WITH NO C/O CP, PRESSURE, OR DIZZINESS. SBP HAS REMAINED STABLE RANGING IN 110-140'S. NO SYNCOPAL EVENTS OVERNIGHT FOR PT REMAINED EASILY AROUSABLE TO VERBAL, TACTILE, AND PAINFUL. RESPIRATORY, MAINTAINS SPO2 >90% ON RA WITH NO REPORTS OF SOB OR DYSPNEA WHILE AT REST. GI/, CONTINUES TO BE INCONTINENT OF URINE, PURWICK IN PLACE AND CONNECTED TO SUCTION PER PROTOCOL. BS PRESENT IN ALL QUADRANTS, BUT NO BM THIS SHIFT. SCHEDULED STOOL SOFTENERS GIVEN ORDERED VIA EMAR. PAIN HAS BEEN WELL MANAGED VIA PRN TYLENOL. 1 UNIT OF PRBC S GIVEN ORDERED BY DR. MEMBRENO. NO GROWTH OF RIGHT HIP HEMATOMA, BUT SITE STILL REMAINS SORE TO PALPATION. ASSESSED PT FOR RISKS OF ANY IGNITION SOURCES WELL BEHAVIORS FOR INCREASED RISKS OF FIRE DANGER. PT EDUCATED ON COMMON SOURCES OF IGNITION WELL NEED TO KEEP A SAFE ENVIRONMENT. PT VOICED UNDERSTANDING. NO NEW ORDERS AT THIS TIME, WILL REPORT TO ONCOMING RN. JANY KHOURY OF THIS NOTE.
--- NOTE | 2023-05-11 11:17 | NUR ---
Spiritual care visit conducted. Patient is lying in bed and alert. Patient's spouse, Kady is bedside. They explain about her medical history and the current plan of care. I provide prayer in line with patient's Yarsani background and patient and spouse voice their appreciation for the time, kindness and prayer given. I will cotninue to remain available to patient and family.
[2023-05-11 12:26] LABS: Hematocrit 26.1 % (33.0-51.0); Hemoglobin 8.5 g/dL (11.5-16.0)
--- NOTE | 2023-05-11 14:52 | NUR ---
CARE NOTE AT APROX. 1440 THIS NURSE WENT INTO PT ROOM FOR HOURLY ROUNDING AND PT WAS SITTING UP IN BED AND APPEARED TEARFUL, WHEN THIS NURSE ASKED THE PT IF EVERYTHING WAS OK PT STATED "NO, I DON'T KNOW WHERE I'M AT, WHERE'S ZAHRAA?" THIS NURSE WENT TO BEDSIDE AND EXPLAINED TO THE PT THAT SHE IS IN THE HOSPITAL AND THAT ZAHRAA WENT HOME FOR A LITTLE BREAK. VSS, SHE IS ALERT AND ORIENTED X 3. CALL LIGHT IS IN REACH, BED ALARM IS ON.
--- NOTE | 2023-05-11 17:09 | NUR ---
SHIFT SUMMARY PT IS ALERT AND ORIENTED X 3. UPON WAKING BOTH IN AM AND AFTER AFTERNOON NAP PT WAS CONFUSED AND DID NOT KNOW WHERE SHE WAS AT, PLEASE SEE PREVIOUS NOTE REGARDING CONFUSION THIS AFTERNOON. SPO2 MAINTAINED >95% VIA ROOM AIR, PT DENIES FEELING SOB. HR STABLE, ORTHOSTATIC HYPOTENSION NOTED BUT BP OTHERWISE STABLE. PT REPORTED FEELING DIZZY WHEN SHE STOOD AT EDGE OF BED. PT ALSO REPORTED PAIN 8/10 IN BILATERAL FEET, PLEASE SEE EMAR FOR PAIN MANAGEMENT. SHE DENIED FEELINGS OF CHEST PAIN/PRESSURE WELL FEELINGS OF NAUSEA. LR IS INFUSING PER EMAR ORDERS. PW DEVICE IS IN PLACE DUE TO INCONTINENCE, NO BM NOTED TODAY. HER ZAHRAA HAS BEEN AT BEDSIDE DURING SHIFT. R HIP HEMATOMA HAS NOT CHANGED SINCE PREVIOUS ASSESSMENT, ALSO SEE CHART FOR PHOTOS. CALL LIGHT IS W/IN REACH, BED ALARM IS ON.
[2023-05-11 20:20] LABS: Hematocrit 24.1 % (33.0-51.0); Hemoglobin 7.9 g/dL (11.5-16.0)
[2023-05-12 03:35] VITALS: BP 152/76
[2023-05-12 04:06] LABS: Hematocrit 25.9 % (33.0-51.0); Hemoglobin 8.4 g/dL (11.5-16.0)
--- NOTE | 2023-05-12 05:14 | NUR ---
SHIFT SUMMARY A/Ox3-4 AND COOPERATIVE WITH CARE. SLOW TO RESPOND AT TIMES AND HAS A FLAT AFFECT. ALSO HAS INTERMITTENT EPISODES OF CONFUSION AT NIGHT BUT CAN BE EASILY REORIENTATED. ABLE TO ANSWER MOST QUESTIONS APPROPRIATELY AND ABLE TO MAKE HER NEEDS KNOWN. CARDIAC, REMAINS IN SR 80-90'S WITH NO C/O CP, PRESSURE, OR DIZZINESS. SBP HAS REMAINED STABLE RANGING IN 130-150'S. NO SYNCOPAL EVENTS OVERNIGHT FOR PT REMAINED EASILY AROUSABLE TO VERBAL, TACTILE, AND PAINFUL STIMULI. RESPIRATORY, MAINTAINS SPO2 >90% ON RA WITH NO REPORTS OF SOB OR DYSPNEA WHILE AT REST. HAS EPISODES OF APNEA, BUT DOES NOT SUSTAIN. GI/, CONTINUES TO BE INCONTINENT OF URINE, PURWICK IN PLACE AND CONNECTED TO SUCTION PER PROTOCOL. BS PRESENT IN ALL QUADRANTS, BUT NO BM THIS SHIFT. SCHEDULED STOOL SOFTENERS GIVEN ORDERED VIA EMAR. PAIN HAS BEEN WELL MANAGED VIA PRN TYLENOL. NO GROWTH OF RIGHT HIP HEMATOMA, BUT SITE STILL REMAINS SORE TO PALPATION. ASSESSED PT FOR RISKS OF ANY IGNITION SOURCES WELL BEHAVIORS FOR INCREASED RISKS OF FIRE DANGER. PT EDUCATED ON COMMON SOURCES OF IGNITION WELL NEED TO KEEP A SAFE ENVIRONMENT. PT VOICED UNDERSTANDING. NO NEW ORDERS AT THIS TIME, WILL REPORT TO ONCOMING RN. JANY KHOURY OF THIS NOTE.
[2023-05-12 08:13] VITALS: BP 152/83
[2023-05-12 08:31] LABS: Bun/Creatinine Ratio 17.8 (12.0-20.0); Calcium, Blood 8.4 mg/dL (8.5-10.1); Creatinine, Blood 1.85 mg/dL (0.40-1.00); Potassium, Blood 3.6 mmol/L (3.5-5.5)
--- NOTE | 2023-05-12 11:27 | NUR ---
PT TRANSITIONED TO MEDICAL STATUS WITH TELE. PT WAS FEELING A LOT MUCH BETTER THIS MORNING ORTHOSTATIC BP WAS DONE SBP 150 LAYING AND SITTING THEN 130'S WITH STANDING AND HR INCREASES TO 130'S WELL BUT GOES BACK DOWN TO 90'S WITH REST. PT DENIES ANY DIZZINESS, NAUSEA OR FEELING FAINT, NO CHEST PAIN/PRESSURE. PT ON RA, HRR SR/ST 90-110'S, AFEBRILE. PT WORKED WITH OCCUPATIONAL THEAPIST PT IS A 1PA VIA WALKER AND GAIT BELT, CURRENTLY SITTING IN THE RECLINER CHAIR. DR BAKER DISCUSSED PLAN FOR DISCHARGED FOR PT FOR POSS. SNF DISCHARGE PER THERAPY RECOMMENDATION. PT AGREEABLE. ORDER FOR ONE TIME INFUSION OF 500MLS LR AT 100MLS/HR. PT STARTED ON SOME BLOOD PRESSURE MEDS WELL. PT HAS PAIN ON THE RIGHT HIP WORSENS WITH PRESSURE/MOVEMENT BUT IS TOLERABLE. IS AWARE OF THE PLANS CURRENTLY AT BEDSIDE. PT TO MOVE TO MEDICAL FLOOR RM 305 REPORT GIVEN TO NARAYAN NEGRO, ALL BELONGINGS SENT WITH THE PT, ACCOMPANIED BY PCT VIA WHEELCHAIR
[2023-05-12 12:24] VITALS: BP 154/71
[2023-05-12] MEDS ORDERED: METO25ER PO (15:06)
[2023-05-12 16:24] VITALS: BP 157/82
--- NOTE | 2023-05-12 17:49 | NUR ---
PT DISCHARGED HOME WITH HOME HEALTH. DC INSTRUCTIONS AND EDUCATION MATERIAL EXPLAINED TO PT AND . NO NEW QUESTIONS OR CONCERNS. MEDICTIONS FAXED TO [facility] PER PT REQUEST. IV DC'D. PT HELPED TO DRESS. ALL BELONGINGS RETURNED TO PT. PT TAKEN BY WHEELCHAIR TO WAITING VEHICLE.
--- NOTE | 2023-05-12 17:54 | NUR ---
PT DISCHARGED HOME WITH [facility]. PT AND EDUCATED ON CARE OF PATCH. INSTRUCTIONS PROVIDED ON HOW TO RETURN PATCH OFTER 14 DAYS. [facility]IO PATCH BOX SENT HOME WITH PT.
== END 2023-05-12 17:57 | disposition home health service (06) | DRG 312 ==
LOC: ER 09:41 → PCU 09:42 → MEDS 05-11 15:53 → PCU 05-12 09:30 → MEDS 05-12 11:36
PROVIDERS: Emergency Medicine; Family Medicine; Internal Medicine; ADMIT Hospitalist
PROC: 30233N1 Transfusion of Nonautologous Red Blood Cells into Peripheral Vein, Percutaneous Approach (ICD-10-PCS; principal; 2023-05-11)
DX: I95.1 Orthostatic hypotension (principal); N17.9 Acute kidney failure, unspecified; D62 Acute posthemorrhagic anemia; N18.4 Chronic kidney disease, stage 4 (severe); I69.354 Hemiplegia and hemiparesis following cerebral infarction affecting left non-dominant side; M25.551 Pain in right hip; I12.9 Hypertensive chronic kidney disease with stage 1 through stage 4 chronic kidney disease, or unspecified chronic kidney disease; D35.00 Benign neoplasm of unspecified adrenal gland; R32 Unspecified urinary incontinence; E86.1 Hypovolemia; T50.2X5A Adverse effect of carbonic-anhydrase inhibitors, benzothiadiazides and other diuretics, initial encounter; E86.0 Dehydration; Z90.710 Acquired absence of both cervix and uterus; Z98.890 Other specified postprocedural states; Z96.0 Presence of urogenital implants; Z88.5 Allergy status to narcotic agent; Z79.82 Long term (current) use of aspirin; Z79.899 Other long term (current) drug therapy; W18.39XA Other fall on same level, initial encounter
CPT/HCPCS: 36415; 36430; 51701; 70450; 71045; 71260; 72125; 73502; 80047; 80048; 80053; 81001; 82140; 82550; 82803; 82947; 83735; 84100; 84484; 85014; 85018; 85025; 85379; 85610; 85730; 86850; 86900; 86901; 86920; 93005; 93010; 93246; 96360-59; 96361; 96361-59; 96374; 96376; 97112; 97162; 97166; 97530; 99285-25; A9270; C9113; G0378; G0480; J7030; J7040; J7120; L0160; P9016; Q9967